=== PATIENT | female | born 1935 | race African-American/Black ===

== ENCOUNTER 2023-01-06 11:59 | Outpatient (CLI) | payer MEDICARE | END 2023-01-06 12:00 | disposition home or self-care (01) | LOC: CSHULT 11:59 | PROVIDERS: ATTEND Student in an Organized Health Care Education/Training Program | DX: R01.1 Cardiac murmur, unspecified (principal); M79.89 Other specified soft tissue disorders; G47.33 Obstructive sleep apnea (adult) (pediatric); I51.7 Cardiomegaly; I51.89 Other ill-defined heart diseases; I70.0 Atherosclerosis of aorta | CPT/HCPCS: 93306 ==